=== PATIENT | female | born 1975 | race Caucasian/White ===

== ENCOUNTER → 2019-02-28 | Outpatient (CLI) | payer OTHER | LOC: MHCPAIN 10:34 | DX: G89.29 Other chronic pain (principal); M47.817 Spondylosis without myelopathy or radiculopathy, lumbosacral region; M54.16 Radiculopathy, lumbar region; M53.3 Sacrococcygeal disorders, not elsewhere classified | CPT/HCPCS: G0463 ==

== ENCOUNTER → 2019-03-08 | Outpatient (CLI) | payer OTHER | LOC: MHCPAIN 08:19 | DX: M47.817 Spondylosis without myelopathy or radiculopathy, lumbosacral region (principal); M54.16 Radiculopathy, lumbar region | CPT/HCPCS: J1100; Q9967 ==

== ENCOUNTER → 2019-03-21 | Outpatient (CLI) | payer OTHER | LOC: MHCPAIN 14:03 | DX: G89.29 Other chronic pain (principal); M47.817 Spondylosis without myelopathy or radiculopathy, lumbosacral region; M54.16 Radiculopathy, lumbar region; M53.3 Sacrococcygeal disorders, not elsewhere classified | CPT/HCPCS: G0463 ==

== ENCOUNTER → 2019-05-03 | Outpatient (CLI) | payer OTHER | LOC: MHCPAIN 03-26 11:20 | DX: M47.817 Spondylosis without myelopathy or radiculopathy, lumbosacral region (principal); M54.16 Radiculopathy, lumbar region; M53.3 Sacrococcygeal disorders, not elsewhere classified; G89.29 Other chronic pain | CPT/HCPCS: G0463; J1100; Q9967 ==

== ENCOUNTER → 2019-05-22 | Outpatient (CLI) | payer OTHER | LOC: MHCPAIN 08:07 | DX: G89.29 Other chronic pain (principal); M47.817 Spondylosis without myelopathy or radiculopathy, lumbosacral region; M54.16 Radiculopathy, lumbar region; M53.3 Sacrococcygeal disorders, not elsewhere classified | CPT/HCPCS: G0463 ==

== ENCOUNTER → 2019-07-11 | Outpatient (CLI) | payer OTHER | LOC: COL.VAS 07-10 09:00 | DX: I08.1 Rheumatic disorders of both mitral and tricuspid valves (principal); F17.200 Nicotine dependence, unspecified, uncomplicated ==

== ENCOUNTER 2019-08-13 07:44 | Day surgery (SDC) | payer OTHER ==
[2019-08-13] VITALS (10 sets, daily range): BP systolic 87–115; BP diastolic 64–76; PULSE 55–64; TEMP 97.8
[~2019-08-13] VITALS: Ht 155 cm; Wt 69.0 kg
[2019-08-13 08:42] LABS: HEMOGLOBIN 11.8 g/dl (12.5-16.0); MEAN CELL VOLUME 83 fl (80.0-100.0); MEAN CORPUSCULAR HEMOGLOBIN 28 pg (27.0-31.0); MEAN CORPUSCULAR HGB CONC 34 g/dl (33.0-37.0); MEAN PLATELET VOLUME 11.8 fl (7.4-10.4); PLATELET COUNT 207 K/mm3 (130-400); REDCELL DISTRIBUTION WIDTH-CV 13.1 % (11.5-14.5)
[2019-08-13 08:46] LABS: HEMATOCRIT 34.7 % (37.0-47.0)
[2019-08-13 08:54] LABS: PROTHROMBIN TIME 11.6 SECONDS (9.7-12.8)
[2019-08-13 08:59] LABS: CALCIUM 8.3 mg/dL (8.4-10.2); CREATININE, serum 0.74 (0.52-1.25); POTASSIUM 3.9 mmol/L (3.4-5.0)
[2019-08-13] MEDS ORDERED: GIANVI 3 MG-0.01 TAB PO (09:03)
[2019-08-13] MEDS ORDERED: TOPROL XL 25MG25 MG PO (09:04)
[2019-08-13] MEDS ORDERED: ASPIRIN E.C. 8181 MG PO (09:04)
--- NOTE | 2019-08-13 09:42 | NUR ---
ALL MEDICATIONS GIVEN VORB WITH MD. SEE MERGE FOR ALL MEDICATION ADMIN TIMES. SEE MERGE FOR RASS ASSESSMENTS DURING AND POST PROCEDURE. POSITIVE BARBEAU'S TEST IN THE RIGHT WRIST, RADIAL PULSE +1.
--- NOTE | 2019-08-13 10:15 | NUR ---
Pt returned to EU 14 per bed s/p heart cath. Pt resting well.
--- NOTE | 2019-08-13 10:20 | NUR ---
Patient transported back to EU room 14 at this time. Patient hooked up to monitoring equipment at this time. VS stable, patient alert and oriented. MISSY Wolf at bedside. Visualized TR band with RN. TR band remains in place with 10 cc of air in the band. No oozing or hematoma noted at this time. Site soft and nontender. Cap refill <3 seconds. Discussed wrist restrictions with patient. Bed in locked and lowest position. Call light within reach.
--- NOTE | 2019-08-13 12:45 | NUR ---
Pt has ambulated, voided and martin PO intake s n/v. R radial band removed and cath site remains soft, C/D/I. Site covered with bandaid and gauze and wrapped with coban. Pt martin well.
--- NOTE | 2019-08-13 13:28 | NUR ---
INT discontinued intact
--- NOTE | 2019-08-13 13:37 | NUR ---
Transferred to [facility] car by marino
== END 2019-08-13 16:25 | disposition home or self-care (01) ==
LOC: COL.CAR 07:44
PROVIDERS: Internal Medicine Cardiovascular Disease
DX: R07.9 Chest pain, unspecified (principal); R94.39 Abnormal result of other cardiovascular function study; F43.10 Post-traumatic stress disorder, unspecified; Z87.891 Personal history of nicotine dependence; Z79.82 Long term (current) use of aspirin; Z82.49 Family history of ischemic heart disease and other diseases of the circulatory system; Z82.3 Family history of stroke
CPT/HCPCS: C1769; C1894; J1644; J2250; J3010; Q9967

== ENCOUNTER → 2020-04-01 | Outpatient (CLI) | payer OTHER ==
[~2020-04-01] MED LIST: ASPIRIN E.C. 8181 MG PO; GIANVI 3 MG-0.01 TAB PO; TOPROL XL 25MG25 MG PO
== END ==
LOC: MHCPAIN 09:29
DX: M54.2 Cervicalgia (principal); R51 Headache; G89.29 Other chronic pain
CPT/HCPCS: G0463

== ENCOUNTER → 2020-04-24 | Outpatient (CLI) | payer OTHER | LOC: MHCPAIN 09:30 | DX: M47.812 Spondylosis without myelopathy or radiculopathy, cervical region (principal); M54.2 Cervicalgia; G89.29 Other chronic pain | CPT/HCPCS: J1100; Q9967 ==

== ENCOUNTER → 2020-05-14 | Outpatient (CLI) | payer OTHER | LOC: MHCPAIN 08:00 | DX: M47.812 Spondylosis without myelopathy or radiculopathy, cervical region (principal); M54.2 Cervicalgia; M54.12 Radiculopathy, cervical region; G89.29 Other chronic pain | CPT/HCPCS: G0463 ==

== ENCOUNTER → 2020-05-22 | Outpatient (CLI) | payer OTHER | LOC: MHCPAIN 10:38 | DX: M47.812 Spondylosis without myelopathy or radiculopathy, cervical region (principal); M54.2 Cervicalgia; M54.12 Radiculopathy, cervical region | CPT/HCPCS: J1100; Q9967 ==

== ENCOUNTER → 2020-06-04 | Outpatient (CLI) | payer OTHER | LOC: MHCPAIN 10:41 | DX: M47.812 Spondylosis without myelopathy or radiculopathy, cervical region (principal); M54.2 Cervicalgia; M54.12 Radiculopathy, cervical region; G89.29 Other chronic pain | CPT/HCPCS: G0463 ==

== ENCOUNTER → 2020-06-09 | Outpatient (CLI) | payer OTHER | LOC: MHCPAIN 13:04 | DX: M47.812 Spondylosis without myelopathy or radiculopathy, cervical region (principal); M54.2 Cervicalgia; M54.12 Radiculopathy, cervical region | CPT/HCPCS: J1100; Q9967 ==

== ENCOUNTER → 2020-06-23 | Outpatient (CLI) | payer OTHER | LOC: MHCPAIN 11:12 | DX: M47.812 Spondylosis without myelopathy or radiculopathy, cervical region (principal); M54.2 Cervicalgia; G89.29 Other chronic pain; M54.12 Radiculopathy, cervical region | CPT/HCPCS: G0463 ==